=== PATIENT | female | born 1960 | race Caucasian/White ===

== ENCOUNTER 2016-11-23 21:42 | Emergency (ER) | payer OTHER | END 2016-11-24 03:05 | disposition home or self-care (01) | LOC: ER 21:42 | DX: J32.9 Chronic sinusitis, unspecified (principal); R51 Headache | CPT/HCPCS: 70450; 96372; 99283; 99283-25 ==

== ENCOUNTER 2016-11-29 21:20 | Emergency (ER) | payer OTHER | END 2016-11-29 22:54 | disposition home or self-care (01) | LOC: ER 21:20 | DX: J32.9 Chronic sinusitis, unspecified (principal); Z79.899 Other long term (current) drug therapy | CPT/HCPCS: 70486; 99283-25 ==

== ENCOUNTER 2017-01-01 00:55 | Emergency (ER) | payer OTHER ==
[2017-01-01 01:27] LABS: BASO % 0.3 % (0.1-1.2); EOS % 0.5 % (0.7-5.8); GRAN # 5.6 10_X3_uL (1.6-6.1); GRAN % 73.1 % (34.0-71.1); HEMATOCRIT 40.3 % (34-45); HEMOGLOBIN 13.5 g/dL (11.2-15.7); LYMPH # 1.5 10_X3_uL (1.2-3.7); LYMPH % 20.1 % (19.3-51.7); MEAN CORPUSCULAR HEMOGLOBIN 27.2 pg (27.0-33.0); MEAN CORPUSCULAR HGB CONC 33.5 g/dL (32.0-36.0); MEAN CORPUSCULAR VOLUME 81.1 fL (79-95); MEAN PLATELET VOLUME 11.3 fl (7.5-11.5); MONO # 0.5 10_X3_uL (0.2-0.9); PLATELET COUNT 331 x10_3/uL (182-369); RED BLOOD COUNT 4.97 x10_6/uL (3.9-5.2); WHITE BLOOD COUNT 7.6 x10_3/uL (4.0-10.0)
[2017-01-01 01:53] LABS: ALBUMIN 4.1 gm/dL (3.4-5.0); ALKALINE PHOSPHATASE 53 U/L (50-136); ALT/SGPT 26 U/L (3.5-33.9); AST/SGOT 38 U/L (7.04-26.96); BILIRUBIN,TOTAL 0.29 mg/dL (0.0-1.0); BLOOD UREA NITROGEN 11 mg/dL (7-18); CALCIUM 9.2 mg/dL (8.7-10.7); CARBON DIOXIDE 21 mmol/L (21-32); CREATINE KINASE 95 U/L (21-215); GLUCOSE,RANDOM 193 mg/dL (70-99); TOTAL PROTEIN 7.5 gm/dL (6.4-8.2)
[2017-01-01 01:57] LABS: URINE BILIRUBIN NEGATIVE (NEGATIVE); URINE BLOOD TRACE (NEGATIVE); URINE GLUCOSE (UA) NORMAL (NORMAL); URINE KETONE TRACE (NEGATIVE); URINE LEUKOCYTE ESTERASE NEGATIVE (NEGATIVE); URINE NITRATE NEGATIVE (NEGATIVE); URINE PROTEIN NEGATIVE (NEGATIVE); UROBILINOGEN NORMAL mg/dL (<1.0)
[2017-01-01 01:58] LABS: POTASSIUM 5.1 mmol/L (3.5-5.1); SODIUM 136 mmol/L (136-145)
[2017-01-01 02:02] LABS: ACETAMINOPHEN < 15.0 ug/ml (10.0-30.0); ETHYL ALCOHOL < 10 mg/dl
[2017-01-01 02:12] LABS: URINE RBC 0-5 /[HPF] (0-2)
[2017-01-01 02:13] LABS: URINE SQUAMOUS EPITHELIAL CELL 0-10 /[HPF] (NONE SEEN)
== END 2017-01-01 07:30 | disposition short-term general hospital (02) ==
LOC: ER 00:55
PROVIDERS: Emergency Medicine
DX: T50.993A Poisoning by other drugs, medicaments and biological substances, assault, initial encounter (principal); F20.0 Paranoid schizophrenia; R44.3 Hallucinations, unspecified; Z79.899 Other long term (current) drug therapy
CPT/HCPCS: 36415; 80053; 80307; 81001; 82550; 82553; 85025; 93005; 99070; 99285-25; G0480